=== PATIENT | female | born 2000 | race Caucasian/White ===

== ENCOUNTER 2019-05-14 15:58 | Emergency (ER) | payer BC, OTHER ==
[2019-05-14 16:46] VITALS: BP 113/76
--- NOTE | 2019-05-14 17:08 | UC ---
Lower Extremity/Ankle HPI - HPI Summary HPI Summary: 9:30 am today patient was struck in [place] by batted softball. was helped off field and using crutches to walk d/t lower leg pain. Took ibuprofen before coming here - History of Current Complaint Chief Complaint: UCLowerExtremity Stated Complaint: LOWER LEG INJURY Time Seen by Provider: 05/14/19 16:38 Hx Obtained From: Patient Hx Last Menstrual Period: 2 weeks ago ?: No Onset/Duration: Sudden Onset Severity Initially: Severe Severity Currently: Severe Pain Intensity: 10 Aggravating Factor(s): Standing, Ambulation Alleviating Factor(s): Rest, Elevation, Ice Able to Bear Weight: No - Allergies/Home Medications Allergies/Adverse Reactions: Allergies Allergy/AdvReac Type Severity Reaction Status Date / Time No Known Allergies Allergy Verified 05/14/19 16:46 Home Medications: Home Medications Albuterol HFA INHALER* [Proair Hfa Inhaler*] 2 puff IN Q4H PRN #1 inh 11/29/12 [ Clinic Confirmed 05/14/19] Ibuprofen TAB* [Advil TAB*] 600 mg PO ONCE 12/03/15 [History Confirmed 05/14/19] Norgestimate-Ethinyl Estradiol [Sprintec 28 0.25-35 mg-Mcg] 1 tab PO DAILY 03/15 [History Confirmed 05/14/19] PMH/Surg Hx/FS Hx/Imm Hx Previously Healthy: Yes Respiratory History: Asthma - Surgical History Surgical History: None - Family History Known Family History: Positive: Hypertension - Social History Occupation: Student Lives: With Family Alcohol Use: None Substance Use Type: None Smoking Status (MU): Never Smoked Tobacco - Immunization History Vaccination Up to Date: Yes Review of Systems All Other Systems Reviewed And Are Negative: Yes Constitutional: Positive: Negative Skin: Positive: Bruising - lower right leg Respiratory: Positive: Negative Cardiovascular: Positive: Negative Musculoskeletal: Positive: Decreased ROM - pain lower R leg Neurological/Mental Status: Positive: Negative Psychological: Positive: Negative Is Patient Immunocompromised?: No Physical Exam Triage Information Reviewed: Yes Appearance: Well-Appearing, No Pain Distress, Well-Nourished Vital Signs: Initial Vital Signs Temp 98.1 F 05/14/19 16:43 Pulse 77 05/14/19 16:43 Resp 12 05/14/19 16:43 BP 113/76 03/07/20 16:43 Pulse Ox 98 05/14/19 16:43 Vital Signs Reviewed: Yes Respiratory Exam: Normal Cardiovascular Exam: Normal Musculoskeletal: Positive: Strength Intact, ROM Intact - c/o pain with movement Neurological Exam: Normal Psychological Exam: Normal Skin: Positive: Other - swelling, bruising lower [place] Diagnostics - Radiology No standard instances Radiology Interpretation Completed By: Radiologist - No fracture R lower leg Lower Extremity Course/Dx - Differential Dx/Diagnosis Differential Diagnosis/HQI/PQRI: Contusion, Fracture (Closed) Provider Diagnosis: Contusion Discharge ED - Sign-Out/Discharge Documenting (check all that apply): Patient Departure All imaging exams completed and their final reports reviewed: Yes - Discharge Plan Condition: Good Disposition: HOME Patient Education Materials: Contusion in Adults (ED) Referrals: Stephanie Norwood MD [Primary Care Provider] - 1 Week (if no better) Additional Instructions: ice and elevate leg over next 48h use ibuprofen 600mg every 6 hours as need for pain - take it with food use marva/boot/crutches for comfort - Billing Disposition and Condition Condition: GOOD Disposition: Home
== END 2019-05-14 17:23 | disposition home or self-care (01) ==
LOC: UCEAST 15:58
DX: S80.11XA Contusion of right lower leg, initial encounter (principal); J45.909 Unspecified asthma, uncomplicated; W22.8XXA Striking against or struck by other objects, initial encounter; Y92.9 Unspecified place or not applicable
CPT/HCPCS: 99211; G0463